=== PATIENT | male | born 1965 | race Caucasian/White ===

== ENCOUNTER 2016-08-31 07:38 | Emergency (ER) | payer BC ==
[~2016-08-31 07:38] MED LIST: ASPIR 8181 MG PO; CARDIZEM CD180 MG PO; CARDIZEM CD300 MG PO; COLCHICINE0.6 MG PO; DELTASONE DPS10 MG PO; GLUCOPHAGE-DPS500 MG PO; HABITROL DPS21 MG TP; HABITROL DPS7 MG TD; LEVAQUIN DPS750 MG PO; MOTRIN-DPS400 MG PO; XARELTO20 MG PO
--- NOTE | 2016-08-31 13:32 | ER ---
ADMIT: 08/31/2016 RM/LOC: ER [facility] MR#: [id number] [facility] [address] [place], [place] [id number] KERLINE LABOY [address] [place] [address] Emergency Room Report SEX: M AGE: 51 : 1965 DATE: 08/31/2016 ADDENDUM: A 51-year-old male coming in with multiple complaints. He has seen Dr. Albert, he has seen even Cardiology for some leg tingling. Essentially what he has is diabetes type 2. He thinks that the metformin he is not tolerating it, so he quit taking it. He has a blood sugar of 142 fasting. He has anything to eat or drink this morning. 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 So, he has some tingling in his fingers. He has no emergent condition at this time. We had a long talk about diabetes in control. He has an appointment with Dr. Albert tomorrow, so he has talked to Dr. Albert as to whether he is tolerating the medicine or not. He has no really education on diabetic diet or such. Again, he can talk to Dr. Albert about that. He may be developing some diabetic neuropathy. Also, paresthesia in his fingers could be carpal tunnel and keep him off work today, and he will see Dr. Albert for followup with these problems. CONDITION ON DISCHARGE: Good. Alex Andrade MD/ yue JOB #: [id number] CC: Alex Andrade MD, Attending Physician Rustam Albert MD, Family Physician
[2017-01-19] MEDS ORDERED: ZEBETA5 MG PO (14:19)
[2017-01-19] MEDS ORDERED: MIRALAX PACKET17 GM PO (14:20)
[2017-01-19] MEDS ORDERED: PROTONIX20 MG PO (14:20)
[2017-01-19] MEDS ORDERED: COLACE-DPS100 MG PO (14:21)
== END 2016-08-31 08:30 | disposition home or self-care (01) ==
LOC: ER 07:38
DX: R20.9 Unspecified disturbances of skin sensation (principal); E11.9 Type 2 diabetes mellitus without complications; F17.210 Nicotine dependence, cigarettes, uncomplicated; Z79.84 Long term (current) use of oral hypoglycemic drugs; Z79.899 Other long term (current) drug therapy

== ENCOUNTER → 2016-09-02 | Outpatient (CLI) | payer BC ==
[~2016-09-02] MED LIST changes: +COLACE-DPS100 MG PO; +MIRALAX PACKET17 GM PO; +PROTONIX20 MG PO; +ZEBETA5 MG PO
== END | disposition home or self-care (01) ==
LOC: RAD.S 09-01 17:00
DX: M79.604 Pain in right leg (principal); M79.605 Pain in left leg; M79.89 Other specified soft tissue disorders

== ENCOUNTER → 2016-09-22 | Outpatient (CLI) | payer BC, OTHER | END | disposition home or self-care (01) | LOC: RAD.S 12:26 → PTH.S 13:15 | DX: R59.1 Generalized enlarged lymph nodes (principal); J43.9 Emphysema, unspecified; M47.895 Other spondylosis, thoracolumbar region; I10 Essential (primary) hypertension ==